=== PATIENT | female | born 1960 | race Caucasian/White ===

== ENCOUNTER 2016-08-10 10:38 | Inpatient (IN) | payer OTHER ==
[~2016-08-10] VITALS: Ht 175.3 cm; Wt 84.3 kg
--- NOTE | 2016-08-10 11:13 | EMERGENCY ROOM VISIT NOTE ---
History First contact with patient: 10:54 Chief Complaint: EYE ASSESSMENT Stated Complaint: FLASHES AND FLURRIES IN RIGHT EYE History of Present Illness The patient is a 56 year old female who presents to the Emergency Room with complaints of "flashes and floaters in right eye". The patient states that 5 days ago she began with dry eyes and thought that it secondary to her allergies. She rubbed the right eye with her hand, then developed a bluish flash of light on the right the eye. She also felt as if she may have pulled something in the right corner of the eye. She also notes a pressure in the right eye when she coughs or sneezes. She rates the pain as a 2/10, there is associated palpitations which have been ongoing. She also feels shaky, feels as if she has a tremor. This has been going on for about 6 months now. She has a history of anxiety and depression and back surgeries. She denies any speech chills, or weakness, chest pain currently but does note that it feels like a tightness, denies any shortness of breath. Review of Systems A complete 6-point Review of Systems was discussed with the patient, with pertinent positives and negatives listed in the History of Present Illness. All remaining Review of Systems questions can be considered negative unless otherwise specified. Past Medical/Surgical History Medical Problems: (1) GERD (gastroesophageal reflux disease) (2) Hypothyroidism (3) Thyrotoxicosis Family History heart disease Social History Smoking Status: Former Smoker Social History: Lives with son and his girlfriend. Current/Historical Medications Scheduled Methimazole (Methimazole), 10 MG PO TID Metoprolol Tartrate (Lopressor), 12.5 MG PO TID Multivitamin (Multivitamin), 1 TAB PO DAILY Pantoprazole (Pantoprazole Sodium), 40 MG PO QAM Sertraline HCl (Sertraline HCl), 25 MG PO QAM Allergies Coded Allergies: No Known Allergies (Unverified , 08/10/16) Physical Exam Vital Signs Date Time Temp Pulse Resp B/P Pulse Ox O2 Delivery O2 Flow Rate FiO2 08/10/16 16:27 91 16 95 08/10/16 14:56 87 11 124/81 98 Room Air 08/10/16 13:56 78 08/10/16 12:49 86 16 103/84 94 Room Air 08/10/16 11:38 85 18 155/67 95 Room Air 08/10/16 11:37 95 Room Air 08/10/16 11:36 89 08/10/16 10:45 36.7 118 18 140/82 94 Room Air Right Eye Acuity: 20/30 Left Eye Acuity: 20/40 Physical Exam VITAL SIGNS - Vital signs and nursing notes were reviewed. Afebrile, normotensive, tachycardic at a rate of 180 bpm, and is saturating on room air 94 %. GENERAL -56-year-old female appearing her stated age who is in no acute distress. Communicates well with provider and answers questions appropriately. SKIN - Without rashes. HEAD - NC/AT. EYES - PERRL with EOMI bilaterally. Sclera anicteric. Palpebral conjunctiva pink and moist with no injection noted. Brief funduscopic examination was unremarkable. EARS - No deformities of external structures noted on gross examination bilaterally. NOSE - Midline and without cyanosis. No epistaxis or purulent drainage noted. Septum midline without deviation or septal hematoma noted. MOUTH/OROPHARYNX - Without perioral cyanosis. Buccal mucosa pink and moist and without leukoplakia. Tongue midline with equal elevation of palate bilaterally. No tonsillar hypertrophy, erythema, or exudates noted. Fair dentition noted. NECK - Neck with FROM. Supple to palpation. No lymphadenopathy noted. No nuchal rigidity. LUNGS - Chest wall symmetric without accessory muscle use, intercostals retractions, or central cyanosis. Normal vesicular breath sounds CTA B/L. No wheezes, rales, or rhonchi appreciated. CARDIAC - RRR with S1/S2. No murmur, rubs, or gallops appreciated. NEUROLOGIC - Cranial nerves II through XII grossly intact. Sensory intact to light touch throughout. There is a fine extremity tremor noted. PSYCH - A&Ox3 and cooperates fully with examiner. Pt is very pleasant and interacts well with examiner. Slit Lamp Examination was performed of the Right eye(s). Alcaine drops were applied to the affected eye(s) for proper anesthetization. The affected eye(s) were stained with Fluorescein stain to precipitate adequate visualization of any conjunctival/scleral excoriations or ulcers. The patient's face was comfortably rested on the chin guard of the slit lamp apparatus. The lights were dimmed and the affected eye(s) were thoroughly examined under microscopy using the blue light. No uptake was present in the eye. Additionally, the eye(s ) were examined under microscopy using the regular light. Close examination revealed no abnormalities. Patient tolerated the procedure well and no complications were met. An Automated Tonometer was utilized to obtain bilateral orbital pressures. The pressures in the LEFT eye were found to be 12, 16,16 with an average of 14.7. The pressures in the RIGHT eye were found to be 12, 14,15 with an average of 13.7. Patient tolerated the procedure well and no complications were met. Medical Decision & Procedures ER Provider Diagnostic Interpretation: CHEST CTA for PULMONARY ARTERIES CT DOSE: 518.00 mGycm HISTORY: Tachycardia. Back pain. Dyspnea. TECHNIQUE: Multiaxial CT images of the chest were performed following the intravenous administration of contrast to evaluate the pulmonary arteries. Maximal intensity projection images were also obtained. COMPARISON STUDY: Chest 08/10/2016 FINDINGS: No evidence for an aortic dissection or pulmonary embolus. The visualized liver and spleen are unremarkable. Subcentimeter mediastinal lymph nodes do not meet CT criteria for pathologic involvement. No pleural or pericardial effusions. Small amount of soft tissue within the anterior mediastinum may represent residual thymus. No pneumothorax. Mild biapical scarlike densities. A few tiny subpleural nodular densities within the right lung apex posteriorly. This may represent scarring. No suspicious pulmonary nodules. No focal lung consolidations to suggest pneumonia. Small focal areas of mild nodular thickening within the bilateral major fissures is also likely benign. IMPRESSION: No evidence for pulmonary embolus. Electronically signed by: Jm Walker M.D. 08/10/2016 2:05 PM Dictated Date/Time: 08/10/2016 1:56 PM CHEST ONE VIEW PORTABLE CLINICAL HISTORY: Chest discomfort. COMPARISON STUDY: No previous studies for comparison. FINDINGS: Lung volumes are normal. There is no pneumothorax or pleural effusion. There is no consolidation. Pulmonary vascularity is normal. Cardiac size is normal. Mediastinal contours are normal. IMPRESSION: No acute cardiopulmonary findings. Electronically signed by: Charles Rodriguez M.D. 08/10/2016 11:45 AM Dictated Date/Time: 08/10/2016 11:[address] SCAN OF THE BRAIN WITHOUT IV CONTRAST CLINICAL HISTORY: Visual changes. COMPARISON STUDY: No priors. TECHNIQUE: Unenhanced axial CT scan of the brain is performed from the vertex to the skull base. Automated dose control exposure was utilized. CT DOSE: 537.48 mGy.cm FINDINGS: Brain parenchyma: The brain parenchyma is normal in appearance. There is no hemorrhage, mass effect, or evidence of acute territorial ischemia by CT criteria. Khoury-white matter is preserved. No extra-axial fluid collection is seen. Ventricles, sulci, cisterns: Normal in configuration. Intracranial vasculature: There is mild atherosclerotic calcification of the cavernous carotid and vertebral arteries. Calvarium: Unremarkable. Sinuses and mastoids: The visualized paranasal sinuses are clear. The mastoid air cells are well pneumatized. Orbits: The bony orbits are grossly intact. IMPRESSION: There is no hemorrhage, mass effect, or evidence of acute territorial ischemia by CT criteria. Electronically signed by: Oni Daly M.D. 08/10/2016 11:57 AM Dictated Date/Time: 08/10/2016 11:56 AM Laboratory Results 08/10/16 11:25 Red Blood Count 4.85, Mean Corpuscular Volume 83.1, Mean Corpuscular Hemoglobin 28.7, Mean Corpuscular Hemoglobin Concent 34.5, Mean Platelet Volume 11.3, Neutrophils (%) (Auto) 56.7, Lymphocytes (%) (Auto) 31.3, Monocytes (%) (Auto) 9.4, Eosinophils (%) (Auto) 2.3, Basophils (%) (Auto) 0.3, Neutrophils # (Auto) 3.63, Lymphocytes # (Auto) 2.00, Monocytes # (Auto) 0.60, Eosinophils # (Auto) 0.15, Basophils # (Auto) 0.02 Test 08/10/16 11:21 08/10/16 11:25 08/10/16 11:31 Bedside Glucose 92 mg/dl (70-90) White Blood Count 6.40 K/uL (4.8-10.8) Red Blood Count 4.85 M/uL (4.2-5.4) Hemoglobin 13.9 g/dL (12.0-16.0) Hematocrit 40.3 % (37-47) Mean Corpuscular Volume 83.1 fL (80-100) Mean Corpuscular Hemoglobin 28.7 pg (25-34) Mean Corpuscular Hemoglobin Concent 34.5 g/dl (32-36) Platelet Count 227 K/uL (130-400) Mean Platelet Volume 11.3 fL (7.4-10.4) Neutrophils (%) (Auto) 56.7 % Lymphocytes (%) (Auto) 31.3 % Monocytes (%) (Auto) 9.4 % Eosinophils (%) (Auto) 2.3 % Basophils (%) (Auto) 0.3 % Neutrophils # (Auto) 3.63 K/uL (1.4-6.5) Lymphocytes # (Auto) 2.00 K/uL (1.2-3.4) Monocytes # (Auto) 0.60 K/uL (0.11-0.59) Eosinophils # (Auto) 0.15 K/uL (0-0.5) Basophils # (Auto) 0.02 K/uL (0-0.2) RDW Standard Deviation 36.7 fL (36.4-46.3) RDW Coefficient of Variation 12.1 % (11.5-14.5) Immature Granulocyte % (Auto) 0.0 % Immature Granulocyte # (Auto) 0.00 K/uL (0.00-0.02) Prothrombin Time 11.0 SECONDS (9.0-12.0) Prothromb Time International Ratio 1.0 (0.9-1.1) Activated Partial Thromboplast Time 25.7 SECONDS (21.0-31.0) Partial Thromboplastin Ratio 1.0 Magnesium Level 2.0 mg/dl (1.8-2.4) Total Bilirubin 0.6 mg/dl (0.2-1) Aspartate Amino Transf (AST/SGOT) 23 U/L (15-37) Alanine Aminotransferase (ALT/SGPT) 35 U/L (12-78) Alkaline Phosphatase 124 U/L (45-117) Total Creatine Kinase 46 U/L (26-192) Creatine Kinase MB < 0.5 ng/ml (0.5-3.6) Creatine Kinase MB Ratio (0-3.0) Total Protein 7.7 gm/dl (6.4-8.2) Albumin 3.7 gm/dl (3.4-5.0) Globulin 4.0 gm/dl (2.5-4.0) Albumin/Globulin Ratio 0.9 (0.9-2) 25-Hydroxy Vitamin D Total 34.3 ng/ml (30-100) Thyroid Stimulating Hormone (TSH) < 0.005 uIu/ml (0.300-4.500) Free Thyroxine 3.59 ng/dl (0.80-1.60) Free Triiodothyronine 11.39 pg/ml (2.30-4.20) Lyme Disease IgG Antibody NEG (NEG) Lyme Disease IgM Antibody NEG (NEG) Hepatitis C Antibody Screen NEG (NEG) Bedside Troponin I 0.000 ng/ml (0-0.045) Medical Decision Patient was seen and evaluated as above. After obtaining a thorough history and physical examination IV access was initiated a broad workup was performed. Patient presents for evaluation of her right eye she will disturbances which is likely a vitreous detachment however neurologic evaluation did commence secondary to the tremor. She is concerned that this may be from her TSH/ thyroid. She states that she was uninsured for a period of time and instead of taking levothyroxine for her hypothyroidism she took thyro gold she states she was taking 300 mg twice a day. She has developed a shakiness/tremor as well as heart palpitations. She was placed on geriatric nurse with continuous pulse ox initiated. During her stay she did become tachycardic into the 150s. There is no provoking event of this. Lab work also focused on TSH. CBC reveals no leukocytosis or concerning anemia. Coagulation studies are within normal limits. Her point care glucose was within normal range. No evidence of significant which went abnormality. Magnesium is within normal limits. Alkaline phosphatase elevated at 124. Point care troponin was 0. TSH was less than 0.005. This appears to be the lowest range of the lab value. Free T3 and free T4 were found to be 11.39, and 3.59 respectively. Because the patient had an episode of tachycardia during her stay, and she was found to be saturating around 94% with some chest tightness I did find that a CT scan of the chest was warranted for PE. This was negative but did have incidental findings which were discussed with the patient. Chest x-ray unremarkable. CT head unremarkable. EKG was normal sinus rhythm, rate of 77 bpm. Patient's eye exam is unremarkable, therefore there is concern for vitreous detachment. I did discuss the case with my attending, and subsequently discussed the case with the on-call leather dresser. I spoke with Dr. Kurtz, an leather dresser, who agreed that it sounds like a vitreous detachment, but would like the patient to call her later today to be seen later today or tomorrow. I do believe this is reasonable. Because the patient experienced several episodes of tachycardia here that were unprovoked, as well as having such an abnormal TSH I do believe that inpatient admission is warranted as I'm concerned the patient may be headed towards a thyroid storm. I did discuss case with my attending again, and subsequently with the hospitalist. Please refer to further documentation regarding the patient's stay. In evaluation treatment this patient following differential diagnoses were entertained: Thyroid storm, hypothyroidism, hyperthyroidism, HI, PE, vitreous detachment, amaurosis fugax, among others. Impression Primary Impression: Visual disturbance of one eye Additional Impressions: Low TSH level Tachycardia Carotid artery calcification vertebral artery calcification Departure Information Dispostion Admitted as an inpatient Condition FAIR Prescriptions Methimazole (Methimazole) 5 Mg Tab 10 MG PO TID for 30 Days, #180 TAB Prov: Margaux Gupta MD 08/13/16 Pantoprazole (Pantoprazole Sodium) 40 Mg Tab 40 MG PO QAM for 30 Days, #30 TAB Prov: Margaux Gupta MD 08/13/16 Sertraline HCl (Sertraline HCl) 50 Mg Tab 25 MG PO QAM for 30 Days, #30 TAB Take 25mg daily x 5 more days then increase to 50mg daily Prov: Margaux Gupta MD 08/13/16 Metoprolol Tartrate (LOPRESSOR) 25 Mg Tab 12.5 MG PO TID for 30 Days, #45 TAB Prov: Margaux Gupta MD 08/13/16 Referrals Nigel Alicia M.D. (PCP) [place] Kurtz D.O. Patient Instructions My [facility] Additional Instructions Please call Dr. Kurtz's office as listed above for follow-up regarding your eye. Problem Qualifiers
[2016-08-10 11:33] LABS: BASO % 0.3 %; BASO ABS # 0.02 K/uL (0-0.2); COMPLETE YES; EOS % 2.3 %; HEMATOCRIT 40.3 % (37-47); LYMPH % 31.3 %; MEAN CELL VOLUME 83.1 fL (80-100); MEAN CORPUSCULAR HEMOGLOBIN 28.7 pg (25-34); MEAN CORPUSCULAR HGB CONC 34.5 g/dl (32-36); MEAN PLATELET VOLUME 11.3 fL (7.4-10.4); MONO % 9.4 %; NEUT % 56.7 %; PLATELET COUNT 227 K/uL (130-400); RED BLOOD COUNT 4.85 M/uL (4.2-5.4)
[2016-08-10] MEDS ORDERED: PRLSR20 PO (11:38)
[2016-08-10] MEDS ORDERED: [UNRECOGNIZED DRUG - CODE] PO (11:38)
[2016-08-10] MEDS ORDERED: MULT-506 PO (11:38)
--- NOTE | 2016-08-10 11:46 | DIAGNOSTIC IMAGING REPORT ---
CHEST ONE VIEW PORTABLE CLINICAL HISTORY: Chest discomfort. COMPARISON STUDY: No previous studies for comparison. FINDINGS: Lung volumes are normal. There is no pneumothorax or pleural effusion. There is no consolidation. Pulmonary vascularity is normal. Cardiac size is normal. Mediastinal contours are normal. IMPRESSION: No acute cardiopulmonary findings. Electronically signed by: Charles Rodriguez M.D. 08/10/2016 11:45 AM Dictated Date/Time: 08/10/2016 11:44 AM
[2016-08-10 11:51] LABS: ALT/SGPT 35 U/L (12-78); AST/SGOT 23 U/L (15-37); BLOOD UREA NITROGEN 17 mg/dl (7-18); BUN/CREATININE RATIO 21.8 (10-20); CALCIUM 10.5 mg/dl (8.5-10.1); CARBON DIOXIDE 26 mmol/L (21-32); CHLORIDE 108 mmol/L (98-107); CREATININE 0.79 mg/dl (0.60-1.20); GLUCOSE 97 mg/dl (70-99); POTASSIUM 3.8 mmol/L (3.5-5.1); SODIUM 144 mmol/L (136-145)
--- NOTE | 2016-08-10 12:00 | DIAGNOSTIC IMAGING REPORT ---
CT SCAN OF THE BRAIN WITHOUT IV CONTRAST CLINICAL HISTORY: Visual changes. COMPARISON STUDY: No priors. TECHNIQUE: Unenhanced axial CT scan of the brain is performed from the vertex to the skull base. Automated dose control exposure was utilized. CT DOSE: 537.48 mGy.cm FINDINGS: Brain parenchyma: The brain parenchyma is normal in appearance. There is no hemorrhage, mass effect, or evidence of acute territorial ischemia by CT criteria. Khoury-white matter is preserved. No extra-axial fluid collection is seen. Ventricles, sulci, cisterns: Normal in configuration. Intracranial vasculature: There is mild atherosclerotic calcification of the cavernous carotid and vertebral arteries. Calvarium: Unremarkable. Sinuses and mastoids: The visualized paranasal sinuses are clear. The mastoid air cells are well pneumatized. Orbits: The bony orbits are grossly intact. IMPRESSION: There is no hemorrhage, mass effect, or evidence of acute territorial ischemia by CT criteria. Electronically signed by: Oni Daly M.D. 08/10/2016 11:57 AM Dictated Date/Time: 08/10/2016 11:56 AM
[2016-08-10 12:01] LABS: ALB/GLOB RATIO 0.9 (0.9-2); ALKALINE PHOSPHATASE 124 U/L (45-117); THYROID STIMULATING HORMONE < 0.005 uIu/ml (0.300-4.500)
[2016-08-10 12:31] LABS: LYME DISEASE AB IGG NEG (NEG); LYME DISEASE AB IGM NEG (NEG)
[2016-08-10] MEDS ORDERED: OPTIRAY 320 IV PRN (13:30)
--- NOTE | 2016-08-10 14:07 | DIAGNOSTIC IMAGING REPORT ---
CHEST CTA for PULMONARY ARTERIES CT DOSE: 518.00 mGycm HISTORY: Tachycardia. Back pain. Dyspnea. TECHNIQUE: Multiaxial CT images of the chest were performed following the intravenous administration of contrast to evaluate the pulmonary arteries. Maximal intensity projection images were also obtained. COMPARISON STUDY: Chest 08/10/2016 FINDINGS: No evidence for an aortic dissection or pulmonary embolus. The visualized liver and spleen are unremarkable. Subcentimeter mediastinal lymph nodes do not meet CT criteria for pathologic involvement. No pleural or pericardial effusions. Small amount of soft tissue within the anterior mediastinum may represent residual thymus. No pneumothorax. Mild biapical scarlike densities. A few tiny subpleural nodular densities within the right lung apex posteriorly. This may represent scarring. No suspicious pulmonary nodules. No focal lung consolidations to suggest pneumonia. Small focal areas of mild nodular thickening within the bilateral major fissures is also likely benign. IMPRESSION: No evidence for pulmonary embolus. Electronically signed by: Jm Walker M.D. 08/10/2016 2:05 PM Dictated Date/Time: 08/10/2016 1:56 PM
[2016-08-10] MEDS ORDERED: POLYETHYLENE (MIRALAX) 17 GM PACK PO PRN (17:30)
[2016-08-10] MEDS ORDERED: ACETAMINOPHEN 325 MG TAB PO PRN (17:30)
[2016-08-10] MEDS ORDERED: MAGNESIUM HYDROXIDE SUSP 30 ML UDC PO PRN (17:30)
[2016-08-10] MEDS ORDERED: ALUMINUM/MAGNESIUM/SIMETH (MAALOX MAX) 30 ML UDC PO PRN (17:30)
[2016-08-10] MEDS ORDERED: ONDANSETRON INJ 2 MG/ML 2 ML VIAL IV PRN (17:30)
--- NOTE | 2016-08-10 17:46 | History and Physical ---
History & Physical Date & Time of Service: Aug 10, 2016 at 17:43 Chief Complaint: Flashes And Flurries In Right Eye Primary Care Physician: Nigel Alicia M.D. History of Present Illness Source: patient Ms. Morrow is a 56 y/o female with PMHx of Hypothyroidism and GERD who presents to the ED complaining of flashes and floaters in bilateral eyes 5 days. She states her symptoms started with dry and itchy eyes. She notes that she has been rubbing her eyes frequently prior to the onset of these flashes and floaters. ED evaluated for concern of vitreous detachment. Ophthalmology was consulted and plans to evaluate patient tomorrow. During evaluation, patient proceeded to mention ongoing chest tightness and elevated heart rate. She states that for the past 3 years that she experiences tachycardia with standing but this seems to resolve when resting. She was diagnosed with hypothyroidism at the age of 23 and was treated with Synthroid for many years. Due to lack of insurance she was unable to afford her medications. For the past 3-4 years she has been using Thyro-gold which is a natural supplement that she purchases online. She has not taken this medication for the past 2 days. During this past 5 days, she reports increased anxiousness, tachycardia, heat intolerance, tremor, fatigue, and difficulty sleeping. She states the symptoms have been more pronounced over the past few days however feels that they have been going on for longer. Patient is new to the area and would like to see Dr. Phillips but has yet to have an official appointment. In the ED, HR varies between 90-170 with increased heart rates with sitting and standing. TSH undetectable at <0.005, T4 3.59, and T3 11.39. Calcium 10.5. Head CT negative for intracranial processes. CTA is negative for pulmonary embolism. Initial troponin is negative. Past Medical/Surgical History Medical Problems: (1) GERD (gastroesophageal reflux disease) (2) Hypothyroidism (3) Thyrotoxicosis Family History Hypothyroidism MOTHER Parkinson's Disease Social History Smoking Status: Former Smoker Smokeless Tobacco Use: No Alcohol Use: none Drug Use: none Housing status: lives with family Allergies Coded Allergies: No Known Allergies (Unverified , 08/10/16) Home Medications Scheduled Multivitamin (Multivitamin), 1 TAB PO DAILY Omeprazole (Prilosec), 20 MG PO DAILY Thyrotropin (Thyrogen), 300 MG PO BID Review of Systems REVIEW OF SYSTEMS: General/Constitutional: +FATIGUE; Denies fever/chills, weakness, weight gain/ loss ENT: +FLASHES/FLOATERS IN VISION; Denies nasal drainage, hearing loss, sore throat, trouble swallowing Cardiovascular: +CHEST TIGHTNESS, PALPITATIONS; Denies edema Respiratory: Denies cough, sputum, SOB, wheezing, orthopnea GI: Denies nausea, vomiting, abdominal pain, constipation, diarrhea, melena/ hematochezia : Denies dysuria, frequency, hematuria Musculoskeletal: Denies joint/muscle aches, weakness, swelling Neurologic: +TREMOR; Denies dizziness/lightheadedness, numbness/tingling, weakness Psychiatric: Deferred Endocrine: +HEAT INTOLERANCE Hematologic/Lymphatic: Denies bleeding/clotting abnormalities Skin: Denies rash, itch, new skin changes, easy bruising Allergy/Immunologic: Deferred Physical Exam Vital Signs Date Time Temp Pulse Resp B/P Pulse Ox O2 Delivery O2 Flow Rate FiO2 08/10/16 16:27 91 16 95 08/10/16 14:56 87 11 124/81 98 Room Air 08/10/16 13:56 78 08/10/16 12:49 86 16 103/84 94 Room Air 08/10/16 11:38 85 18 155/67 95 Room Air 08/10/16 11:37 95 Room Air 08/10/16 11:36 89 08/10/16 10:45 36.7 118 18 140/82 94 Room Air PHYSICAL EXAM:: General Appearance: WDWN in mild distress due to anxiousness who is A&O x 3; mask-like face, mild exophthalmos HEENT: Head is normocephalic/atraumatic; EOMI; PERRLA; Hearing grossly intact; Mucous membranes moist; Pharynx negative for exudate/lesions; possible mild diffuse enlargement of thyroid gland Neck: Supple; Trachea midline; Neg JVD; Neg lymphadenopathy Heart: Tachycardic with regular rhythm with no M/G/R Lungs: CTA in all lung doyle bilaterally; Respirations unlabored; Neg accessory muscle use Abdomen: Soft, non-tender, non-distended; Positive BS x 4 quadrants; Neg organomegaly Extremities: Capillary refill < 2 seconds; Neg cyanosis or edema Neurological: Speech clear; Mild resting tremor; Gross motor/sensory function intact; Neg focal neurologic deficits Psychiatric: Appropriate mood/affect Skin: Normal Color; Warm/Dry; Neg rashes, ecchymosis, lacerations/ulcerations Diagnostics Laboratory Results Results Past 24 Hours Test 08/10/16 11:21 08/10/16 11:25 08/10/16 11:31 08/10/16 17:38 Range/Units Bedside Glucose 92 70-90 mg/dl White Blood Count 6.40 4.8-10.8 K/uL Red Blood Count 4.85 4.2-5.4 M/uL Hemoglobin 13.9 12.0-16.0 g/dL Hematocrit 40.3 37-47 % Mean Corpuscular Volume 83.1 80-100 fL Mean Corpuscular Hemoglobin 28.7 25-34 pg Mean Corpuscular Hemoglobin Concent 34.5 32-36 g/dl Platelet Count 227 130-400 K/uL Mean Platelet Volume 11.3 7.4-10.4 fL Neutrophils (%) (Auto) 56.7 % Lymphocytes (%) (Auto) 31.3 % Monocytes (%) (Auto) 9.4 % Eosinophils (%) (Auto) 2.3 % Basophils (%) (Auto) 0.3 % Neutrophils # (Auto) 3.63 1.4-6.5 K/uL Lymphocytes # (Auto) 2.00 1.2-3.4 K/uL Monocytes # (Auto) 0.60 0.11-0.59 K/uL Eosinophils # (Auto) 0.15 0-0.5 K/uL Basophils # (Auto) 0.02 0-0.2 K/uL RDW Standard Deviation 36.7 36.4-46.3 fL RDW Coefficient of Variation 12.1 11.5-14.5 % Immature Granulocyte % (Auto) 0.0 % Immature Granulocyte # (Auto) 0.00 0.00-0.02 K/uL Prothrombin Time 11.0 9.0-12.0 SECONDS Prothromb Time International Ratio 1.0 0.9-1.1 Activated Partial Thromboplast Time 25.7 21.0-31.0 SECONDS Partial Thromboplastin Ratio 1.0 Sodium Level 144 136-145 mmol/L Potassium Level 3.8 3.5-5.1 mmol/L Chloride Level 108 98-107 mmol/L Carbon Dioxide Level 26 21-32 mmol/L Anion Gap 10.0 3-11 mmol/L Blood Urea Nitrogen 17 7-18 mg/dl Creatinine 0.79 0.60-1.20 mg/dl Est Creatinine Clear Calc Drug Dose 91.4 ml/min Estimated GFR () 96.3 Estimated GFR (Non- 83.1 BUN/Creatinine Ratio 21.8 10-20 Random Glucose 97 70-99 mg/dl Calcium Level 10.5 8.5-10.1 mg/dl Magnesium Level 2.0 1.8-2.4 mg/dl Total Bilirubin 0.6 0.2-1 mg/dl Aspartate Amino Transf (AST/SGOT) 23 15-37 U/L Alanine Aminotransferase (ALT/SGPT) 35 12-78 U/L Alkaline Phosphatase 124 45-117 U/L Total Creatine Kinase 46 26-192 U/L Creatine Kinase MB < 0.5 0.5-3.6 ng/ml Creatine Kinase MB Ratio 0-3.0 Total Protein 7.7 6.4-8.2 gm/dl Albumin 3.7 3.4-5.0 gm/dl Globulin 4.0 2.5-4.0 gm/dl Albumin/Globulin Ratio 0.9 0.9-2 Thyroid Stimulating Hormone (TSH) < 0.005 0.300-4.500 uIu/ml Free Thyroxine 3.59 0.80-1.60 ng/dl Free Triiodothyronine 11.39 2.30-4.20 pg/ml Lyme Disease IgG Antibody NEG NEG Lyme Disease IgM Antibody NEG NEG Bedside Troponin I 0.000 0-0.045 ng/ml Diagnostic Radiology 1. CT SCAN OF THE BRAIN WITHOUT IV CONTRAST CLINICAL HISTORY: Visual changes. COMPARISON STUDY: No priors. TECHNIQUE: Unenhanced axial CT scan of the brain is performed from the vertex to the skull base. Automated dose control exposure was utilized. CT DOSE: 537.48 mGy.cm FINDINGS: Brain parenchyma: The brain parenchyma is normal in appearance. There is no hemorrhage, mass effect, or evidence of acute territorial ischemia by CT criteria. Khoury-white matter is preserved. No extra-axial fluid collection is seen. Ventricles, sulci, cisterns: Normal in configuration. Intracranial vasculature: There is mild atherosclerotic calcification of the cavernous carotid and vertebral arteries. Calvarium: Unremarkable. Sinuses and mastoids: The visualized paranasal sinuses are clear. The mastoid air cells are well pneumatized. Orbits: The bony orbits are grossly intact. IMPRESSION: There is no hemorrhage, mass effect, or evidence of acute territorial ischemia by CT criteria. 2. CHEST CTA for PULMONARY ARTERIES CT DOSE: 518.00 mGycm HISTORY: Tachycardia. Back pain. Dyspnea. TECHNIQUE: Multiaxial CT images of the chest were performed following the intravenous administration of contrast to evaluate the pulmonary arteries. Maximal intensity projection images were also obtained. COMPARISON STUDY: Chest 08/10/2016 FINDINGS: No evidence for an aortic dissection or pulmonary embolus. The visualized liver and spleen are unremarkable. Subcentimeter mediastinal lymph nodes do not meet CT criteria for pathologic involvement. No pleural or pericardial effusions. Small amount of soft tissue within the anterior mediastinum may represent residual thymus. No pneumothorax. Mild biapical scarlike densities. A few tiny subpleural nodular densities within the right lung apex posteriorly. This may represent scarring. No suspicious pulmonary nodules. No focal lung consolidations to suggest pneumonia. Small focal areas of mild nodular thickening within the bilateral major fissures is also likely benign. IMPRESSION: No evidence for pulmonary embolus. EKG Normal sinus rhythm Normal ECG No previous ECGs available Confirmed by CELSO THOMPSON ([id number]) on 08/10/2016 12:14:53 PM Impression Assessment and Plan Ms. Morrow is a 56 y/o female with PMHx of Hypothyroidism and GERD who presents to the ED complaining of flashes and floaters in bilateral eyes 5 days. Associated compaints of chest tightness and tachycardia with standing. Laboratories revealing hyperthyroidism. Thyrotoxicosis 2/2 Supplementation (Thyro-Gold): - Called poison control - they do not have information on this supplement -- Unsure of half-life however patient has not taken this in 2 days --She buys this online at [employer] - Metoprolol 50 mg 1 dose then metoprolol 25 q6H - rate control - Methimazole 10 mg TID - Thyroid U/S - Echocardiogram Flashes/Floaters: Vitreous Detachment vs Hyperthyroid Symptom: - Ophthalmology to evaluate tomorrow Hypercalcemia: - Concern for osteoporosis if this truly is ongoing hyperthyroidism - PTH and vitamin D - pending GERD: - Protonix 40 mg daily as omeprazole interchange DVT Prophylaxis: Lovenox 40 mg SC daily Code Status: FULL RESUSCITATION Disposition: - Recently moved to the area - would like to establish Dr. Phillips as PCP - will need outpatient appointment - Consideration for continued BB use and methimazole - will need repeat thyroid studies as outpatient Level of Care Telemetry Resuscitation Status FULL RESUSCITATION VTE Prophylaxis VTE Risk Assessment Done? Y/N: Yes Risk Level: Moderate Given or contraindicated: Enoxaparin (Lovenox)SQ, T.E.D. Stockings, SCD's Assessment and Plan Attending Addendum: I have physically seen and examined this patient, have directed their medical care, have supervised the PA's activity, and agree with the H&P as noted above, with the following changes: NONE.
[2016-08-10] MEDS ORDERED: METOPROLOL TARTRATE 50 MG TAB PO STA (18:06)
--- NOTE | 2016-08-10 19:20 | DIAGNOSTIC IMAGING REPORT ---
THYROID ULTRASOUND HISTORY: Nodule R/O nodule COMPARISON: None. FINDINGS: Right lobe: Maximum dimension 3.8 cm. Diffusely heterogeneous. No well-defined nodular density. Left lobe: Maximum dimension 3.9 cm. Diffusely heterogeneous. 3 mm central calcification. No definite nodules. Isthmus: No nodules. IMPRESSION: Heterogeneous thyroid bilaterally. 2. No well-defined dominant thyroid nodule]. 3. The appearance suggests a component of thyroiditis Electronically signed by: Jonathan Tong M.D. 08/10/2016 7:18 PM Dictated Date/Time: 08/10/2016 7:16 PM
[2016-08-10] MEDS ORDERED: METOPROLOL TARTRATE 50 MG TAB PO ONE (19:45)
[2016-08-10 19:54] VITALS: BP 111/70; PULSE 93
[2016-08-10 20:00] VITALS: BP 133/77; PULSE 76; TEMP 36.7; O2SAT 95; Ht 175.3 cm; Wt 84.3 kg
[2016-08-10] MEDS: ENOXAPARIN 30 MG/0.3 ML SYR SC SCH (21:00)
[2016-08-10] MEDS: METHIMAZOLE 5 MG TAB PO SCH (21:23)
[2016-08-11] VITALS (10 sets, daily range): BP systolic 94–115; BP diastolic 59–69; PULSE 71–93; TEMP 36.6–36.8; O2SAT 92–96
[2016-08-11] MEDS: METOPROLOL TARTRATE 25 MG TAB PO SCH ×4 (02:15→21:00)
[2016-08-11] MEDS: PANTOprazole SOD 40 MG TAB PO SCH (08:35)
[2016-08-11] MEDS: METHIMAZOLE 5 MG TAB PO SCH ×3 (08:35→21:45)
--- NOTE | 2016-08-11 09:32 | Family Medicine Progress Note ---
Progress Note Date of Service Aug 11, 2016. Subjective Pt evaluation today including: conversation w/ patient Pain: none Reports have had palpitations, anxiety on and off for atleast 3 months Also had "Brain fog" that she attributed to possible early Parkinsons as it runs in her family She has not been able to afford her Synthroid due to not having insurance and not having a doctor. 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- but improved since yesterday Constitutional: No chills, No fatigue, No fever, No sweats, No weakness Eyes: + worsening of vision ENT: No hearing loss Respiratory: No cough, No dyspnea on exertion, No shortness of breath, No sputum, No wheezing Cardiovascular: + palpitations, No chest pain Abdomen: + constipation, No diarrhea, No nausea, No pain, No vomiting Musculoskeletal: + joint pain, No calf pain, No muscle pain, No swelling Female : No dysuria, No urinary frequency Neurologic: No balance problems, No memory loss, No numbness/tingling, No paralysis, No weakness Objective Physical Exam General Appearance: no apparent distress Eyes: normal inspection, PERRL, EOMI ENT: hearing grossly normal, pharynx normal Neck: supple, no adenopathy, thyroid normal Respiratory/Chest: lungs clear, normal breath sounds, no respiratory distress, no accessory muscle use Cardiovascular: regular rate, rhythm, no edema, no murmur Abdomen: normal bowel sounds, non tender, soft Extremities: normal range of motion, non-tender, no pedal edema, no calf tenderness Neurologic/Psychiatric: tooth inspector II-XII nml as tested, no motor/sensory deficits, normal mood/affect Assessment and Plan This is a 56 y/o F with a history of hypothyroidism who presented with floaters/ flashers in her eyes bilaterally as well as tachycardia/palpitations. Lab eval is concerning for thyrotoxicosis. Thyrotoxicosis 2/2 Supplementation (Thyro-Gold): - Called poison control - they do not have information on this supplement -- Unsure of half-life however patient has not taken this in 2 days --She buys this online at [employer] - Reduce Metoprolol to 12.5 mg BID- due to low Blood pressure Patient still tachycardic when walking in hallways. - Tele review with Sinus tach - Methimazole 10 mg TID - Thyroid U/S- without evidence of thyroid nodule but suggests thyroiditis. - Echocardiogram with grade 1 diastolic dysfunction. and borderline LVH Flashes/Floaters: Vitreous Detachment vs Hyperthyroid Symptom: - Ophthalmology evaluation outpatient Hypercalcemia: - Concern for osteoporosis if this truly is ongoing hyperthyroidism? - PTH (normal) and vitamin D(low normal) - Recheck tomorrow with hydration Depression/Anxiety - patient is emotional and tearful, lots of stressors in life - Started on Zoloft. GERD: - Protonix 40 mg daily DVT Prophylaxis: Lovenox 40 mg SC daily- patient declining- encourage ambulation Code Status: FULL RESUSCITATION Disposition: - Recently moved to the area - - CM working on PCP establishment Reviewed: Pt Seen/Exam by Me History Resident Physician Supervision Note: I interviewed and examined the patient. Discussed with Dr. Reynolds and agree with findings and plan as documented in the note. 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 Improved but still tachycardic in the 150s with ambulation. Low blood pressure limited her last dose of metoprolol. She states she has had had depression in the past and been treated with Zoloft which worked. She is not been able to afford to see a doctor or a therapist or counselor in many years. Vitals on telemetry reviewed, sinus tachycardia at times No acute distress, alert and oriented 3 Regular rate and rhythm, no murmurs gallops or rubs Clear to auscultation bilaterally, no wheezes crackles or rhonchi, breathing unlabored Abdomen soft, large incisional midline scar with exquisite tenderness superficially which is chronic as per patient, no guarding or rebound, no hepatosplenomegaly or masses Extremities no edema, 2+ dorsalis pedis pulses Psych-mood is depressed, affect is full and appropriate, no suicidal or homicidal ideations 56-year-old female here with thyrotoxicosis due to exogenous supplementation and no thyroid testing in 5 years due to lack of health insurance. She now has health insurance starting in 2 days. -Continue methimazole and recheck thyroid function tests in 1 week and adjust dose as appropriate -Continue to hold thyroid Gold -Continue metoprolol but reduced is 12.5 mg by mouth twice a day -Starting Zoloft for depression 25 mg daily 1 week then increase to 50 mg daily and then follow up with PCP -Expect discharge tomorrow Documented By: Margaux Gupta
--- NOTE | 2016-08-11 11:57 | ECHOCARDIOGRAM REPORT ---
*NOTICE TO RECEIVING DEMOCRAT AGENCY This information is strictly Confidential and protected under [place] law. [place] law prohibits you from making any further disclosure of this information unless further disclosure is expressly permitted by the written consent of the person to whom it pertains or is authorized by law. A general authorization for the release of medical or other information is not sufficient for this purpose. Hospital accepts no responsibility if the information is made available to any other person, INCLUDING THE PATIENT. Interpretation Summary * Name: NGOC SWIFT Study Date: 08/11/2016 10:14 AM BP: 107/69 mmHg * Patient Location: [facility]\S\[id number]\S\2 HR: 73 * : 1960 (M/d/yyyy) Gender: Female Height: 69 in * Age: 56 yrs Ethnicity: CA Weight: 186 lb * Ordering Physician: Christa Davis * Performed By: Berta Don * * Reason For Study: SVT * BSA: 2.0 m2 * -- Conclusions -- * There is borderline concentric left ventricular hypertrophy. * Left ventricular systolic function is normal. * Grade I diastolic dysfunction, (abnormal relaxation pattern). * Right ventricular systolic pressure is normal. Procedure Details * A complete two-dimensional transthoracic echocardiogram was performed (2D, M-mode, Doppler and color flow Doppler). Left Ventricle * The left ventricle is normal in size. * There is borderline concentric left ventricular hypertrophy. * Ejection Fraction = 55-60%. * Left ventricular systolic function is normal. * Grade I diastolic dysfunction, (abnormal relaxation pattern). Right Ventricle * The right ventricle is normal in size and function. Atria * The left atrial size is normal. * Right atrial size is normal. Mitral Valve * The mitral valve anatomy is normal. * Significant mitral regurgitation is absent. Tricuspid Valve * The tricuspid valve is not well visualized, but is grossly normal. * There is trace tricuspid regurgitation. * Right ventricular systolic pressure is normal. Aortic Valve * The aortic valve is normal in structure and function. * No hemodynamically significant valvular aortic stenosis. * There is no significant aortic regurgitation. Pulmonic Valve * The pulmonic valve leaflets are thin and pliable; valve motion is normal. * Trace pulmonic valvular regurgitation. Great Vessels * The aortic root is normal size. Pericardium/Pleural * There is no pericardial effusion. MMode 2D Measurements and Calculations IVSd 1.2 cm IVSs 1.6 cm LVIDd 4.9 cm LVIDs 3.5 cm LVPWd 0.65 cm LVPWs 1.5 cm IVS/LVPW 1.9 FS 29.1 % EDV(Teich) 112.9 ml ESV(Teich) 50.0 ml EF(Teich) 55.7 % EDV(cubed) 117.7 ml ESV(cubed) 42.0 ml EF(cubed) 64.3 % % IVS thick 27.4 % % LVPW thick 134.4 % LV mass(C)d 162.2 grams LV mass(C)dI 81.0 grams/m\S\2 LV mass(C)s 201.8 grams LV mass(C)sI 100.7 grams/m\S\2 SV(Teich) 62.8 ml SI(Teich) 31.4 ml/m\S\2 SV(cubed) 75.7 ml SI(cubed) 37.8 ml/m\S\2 ACS 1.9 cm LA dimension 3.3 cm asc Aorta Diam 3.3 cm LVOT diam 2.0 cm LVOT area 3.2 cm\S\2 LVAd ap4 33.9 cm\S\2 LVLd ap4 8.2 cm EDV(MOD-sp4) 112.4 ml EDV(sp4-el) 118.5 ml LVAs ap4 19.2 cm\S\2 LVLs ap4 6.6 cm ESV(MOD-sp4) 46.7 ml ESV(sp4-el) 47.4 ml EF(MOD-sp4) 58.4 % EF(sp4-el) 60.0 % LVAd ap2 30.6 cm\S\2 LVLd ap2 8.5 cm EDV(MOD-sp2) 91.7 ml EDV(sp2-el) 93.3 ml LVAs ap2 17.5 cm\S\2 LVLs ap2 6.8 cm ESV(MOD-sp2) 37.1 ml ESV(sp2-el) 37.8 ml EF(MOD-sp2) 59.5 % EF(sp2-el) 59.5 % LVLd %diff 3.2 % EDV(MOD-bp) 102.1 ml LVLs %diff 3.5 % ESV(MOD-bp) 42.5 ml EF(MOD-bp) 58.4 % SV(MOD-sp4) 65.7 ml SI(MOD-sp4) 32.8 ml/m\S\2 SV(MOD-sp2) 54.6 ml SI(MOD-sp2) 27.3 ml/m\S\2 SV(MOD-bp) 59.6 ml SI(MOD-bp) 29.8 ml/m\S\2 SV(sp4-el) 71.1 ml SI(sp4-el) 35.5 ml/m\S\2 SV(sp2-el) 55.5 ml SI(sp2-el) 27.7 ml/m\S\2 Doppler Measurements and Calculations MV E max gricelda 69.6 cm/sec MV A max gricelda 96.0 cm/sec MV E/A 0.72 MV dec time 0.16 sec Ao V2 max 149.5 cm/sec Ao max PG 8.9 mmHg Ao max PG (full) 3.1 mmHg PRIYANK(V,A) 2.6 cm\S\2 PRIYANK(V,D) 2.6 cm\S\2 LV V1 max PG 5.8 mmHg LV V1 max 120.5 cm/sec PA V2 max 78.2 cm/sec PA max PG 2.4 mmHg PI end-d gricelda 95.3 cm/sec TR max gricelda 223.6 cm/sec
[2016-08-11] MEDS ORDERED: SERTRALINE HCL 50 MG TAB PO ONE (16:49)
[2016-08-11] MEDS ORDERED: METOPROLOL TARTRATE 25 MG TAB PO SCH (21:00)
[2016-08-11] MEDS: ENOXAPARIN 30 MG/0.3 ML SYR SC SCH (21:00)
[2016-08-12 04:44] VITALS: BP 110/68; PULSE 70; TEMP 36.4; O2SAT 93
[2016-08-12 07:28] LABS: BUN/CREATININE RATIO 31.2 (10-20); CALCIUM 9.7 mg/dl (8.5-10.1); CREATININE 0.53 mg/dl (0.60-1.20)
--- NOTE | 2016-08-12 07:44 | Discharge Instructions ---
Discharge Instructions Date of Service Aug 12, 2016. Admission Reason for Admission: Thyrotoxicosis Discharge Discharge Diagnosis / Problem: Thyrotoxicosis Discharge Goals Goal(s): Decrease discomfort, Improve function, Diagnostic testing, Therapeutic intervention, Prevent Disease Progression Activity Recommendations Activity Limitations: as noted below Lifting Limitations: gradually increase as tolerated Exercise/Sports Limitations: as tolerated May Resume Sexual Activity: when tolerated Shower/Bathe: no limitations Driving or Machine Use: no limitations . Instructions / Follow-Up Instructions / Follow-Up Dear Mrs. Morrow, You were admitted due to having elevated heart rate, palpitations, floaters/ flashers in your eyes. You were found to have too much thyroid hormone that we believe is a result of your thyroid supplement. Please stop taking thyro-gold. You have been started on Methimazole to help reverse this. You also have Metoprolol for control of symptoms such as elevated heart rate. In terms of the floaters in your eyes, you will have follow up with Ophthalmology, Dr. Freedman on August 15. You will need close follow up with a PCP to monitor your thyroid hormone levels. Case management will help facilitate this. If you experience any further symptoms, please call your PCP or go to the ER. Thank you. Current Hospital Diet Patient's current hospital diet: Regular Diet Discharge Diet Recommended Diet: Regular Diet Pending Studies Studies pending at discharge: no Medical Emergencies . Who to Call and When: Medical Emergencies: If at any time you feel your situation is an emergency, please call 911 immediately. . Non-Emergent Contact Non-Emergency issues call your: Primary Care Provider . . "Provider Documentation" section prepared by Soheila Wheatley. VTE Core Measure Inpt VTE Proph given/why not?: Enoxaparin (Lovenox)EMILE, TJeffECheng Cool, SCD's
[2016-08-12 08:01] VITALS: BP 112/59; PULSE 74; TEMP 36.6; O2SAT 94
[2016-08-12] MEDS: PANTOprazole SOD 40 MG TAB PO SCH (08:41)
[2016-08-12] MEDS: METOPROLOL TARTRATE 25 MG TAB PO SCH ×2 (08:41→21:57)
[2016-08-12] MEDS: METHIMAZOLE 5 MG TAB PO SCH ×3 (08:42→21:56)
[2016-08-12] MEDS: SERTRALINE HCL 50 MG TAB PO SCH (08:43)
[2016-08-12 11:27] VITALS: BP 120/74; PULSE 85; TEMP 36.6; O2SAT 96
[2016-08-12 15:07] VITALS: BP_SYST 114; BP_SYST 99; BP_DIAS 65; BP_DIAS 70; BP_DIAS 77; PULSE 126; PULSE 70; PULSE 95
[2016-08-12] MEDS ORDERED: NURSING VERBAL MED ORDER ONE (15:30)
[2016-08-12] MEDS ORDERED: ALUMINUM/MAGNESIUM SUSP 30 ML UDC ONE (15:39)
[2016-08-12 15:54] VITALS: BP_SYST 111; BP_SYST 112; BP_SYST 117; BP_DIAS 64; BP_DIAS 67; BP_DIAS 74; PULSE 134; PULSE 67; PULSE 89; TEMP 36.7; O2SAT 96
[2016-08-12] MEDS ORDERED: MAGNESIUM HYDROXIDE SUSP 30 ML UDC PO ONE (16:00)
[2016-08-12] MEDS ORDERED: METOPROLOL TARTRATE 25 MG TAB PO ONE (16:45)
--- NOTE | 2016-08-12 17:09 | Family Medicine Progress Note ---
Progress Note Date of Service Aug 12, 2016. Subjective Pt evaluation today including: conversation w/ patient Voiding: no voiding problems Reports having mild shortness of breath with exertion/walking to the bathroom Still has floaters/flashers Denies chest pain Constitutional: No chills, No fatigue, No fever, No sweats, No weakness Eyes: No worsening of vision ENT: No hearing loss Respiratory: + dyspnea on exertion, + shortness of breath, No cough, No sputum, No wheezing Cardiovascular: No PND, No chest pain, No edema, No orthopnea Abdomen: No diarrhea, No nausea, No pain, No vomiting Musculoskeletal: + joint pain, No calf pain, No swelling Female : No dysuria, No urinary frequency Objective Physical Exam General Appearance: no apparent distress Eyes: PERRL, EOMI ENT: hearing grossly normal Neck: no adenopathy, thyroid normal Respiratory/Chest: lungs clear, normal breath sounds, no respiratory distress, no accessory muscle use Cardiovascular: regular rate, rhythm, no edema, no murmur Abdomen: normal bowel sounds, non tender, soft Extremities: non-tender, normal inspection, no pedal edema, no calf tenderness Neurologic/Psychiatric: no motor/sensory deficits, alert, normal mood/affect Assessment and Plan This is a 56 y/o F with a history of hypothyroidism who presented with floaters/ flashers in her eyes bilaterally as well as tachycardia/palpitations. She is admitted for Thyrotoxicosis. Though she has been started on Metoprolol for symptom and HR control, her blood pressure is in the 90-100 systolic making it difficult to administer metoprolol. She also becomes tachycardic in the 150s with ambulation to the bathroom and is some what short of breath. Patient and son were considering going home. However, with being symptomatic in the 150's with minimal ambulation/activity, they decided to stay a night. Patient also had an episode of chest pain, that resolved with maalox. Thyrotoxicosis 2/2 Supplementation (Thyro-Gold): -Change Metoprolol to 12.5 mg TID Patient still tachycardic when walking in hallways. Discussed with Patient and son that this will not resolve overnight, will need thyroid hormones to stabilize - Tele review with Sinus tach - Methimazole 10 mg TID - Thyroid U/S- without evidence of thyroid nodule but suggests thyroiditis. - Echocardiogram with grade 1 diastolic dysfunction. and borderline LVH - orthostatics positive Flashes/Floaters: Vitreous Detachment vs Hyperthyroid Symptom: - Ophthalmology evaluation outpatient Hypercalcemia- improved with hydration - Concern for osteoporosis if this truly is ongoing hyperthyroidism? - PTH (normal) and vitamin D(low normal) Depression/Anxiety - patient is emotional and tearful, lots of stressors in life - Started on Zoloft. GERD: - Protonix 40 mg daily DVT Prophylaxis: Lovenox 40 mg SC daily- patient declining- encourage ambulation Code Status: FULL RESUSCITATION Disposition: - Recently moved to the area - - Has PCP appt. scheduled. Continued [facility] stay due to: abnormal vital signs History Resident Physician Supervision Note: I interviewed and examined the patient. Discussed with Dr. Reynolds and agree with findings and plan as documented in the note. Any exceptions or clarifications are listed here: Remains tachycardic with minimal exertion on telemetry, however it is improved from previous and she was able to receive a lower dose of metoprolol this morning as her blood pressure was finally over 100. She is still very short of breath and feels lightheaded with standing and walking and her orthostatics were positive. She had an episode of her usual chest pain which always occurs while she is lying down. It feels like someone is rubbing their fist into her chest. I gave her a dose of Maalox and the symptoms were almost immediately relieved. Vitals on telemetry reviewed, sinus tachycardia at times No acute distress, alert and oriented 3 Regular rate and rhythm, no murmurs gallops or rubs Clear to auscultation bilaterally, no wheezes crackles or rhonchi, breathing unlabored Abdomen soft, large incisional midline scar with exquisite tenderness superficially which is chronic as per patient, no guarding or rebound, no hepatosplenomegaly or masses Extremities no edema, 2+ dorsalis pedis pulses Psych-mood is depressed, affect is full and appropriate, no suicidal or homicidal ideations 56-year-old female here with thyrotoxicosis due to exogenous supplementation and no thyroid testing in 5 years due to lack of health insurance. She now has health insurance starting in 2 days. -Continue methimazole and recheck thyroid function tests in 1 week and adjust dose as appropriate -Permanently discontinue thyroid Gold and will eventually need to be restarted on levothyroxine -Continue metoprolol but reduced is 12.5 mg by mouth 3 times a day -Started Zoloft for depression 25 mg daily 1 week then increase to 50 mg daily and then follow up with PCP -For her GERD symptoms with breakthrough despite being on PPI, recommend she see a production associate for possible EGD after she gets established with her new insurance and PCP. Documented By: Margaux Gupta
[2016-08-12 19:46] VITALS: BP 115/58; PULSE 70; TEMP 36.3; O2SAT 94
[2016-08-12] MEDS: ENOXAPARIN 30 MG/0.3 ML SYR SC SCH (21:00)
[2016-08-13 00:29] VITALS: BP 98/59; PULSE 68; TEMP 36.5; O2SAT 94
[2016-08-13 05:42] VITALS: BP 106/59; PULSE 89; TEMP 36.5; O2SAT 93
[2016-08-13 07:34] VITALS: BP 103/64; PULSE 77; TEMP 36.7; O2SAT 96
[2016-08-13] MEDS: METHIMAZOLE 5 MG TAB PO SCH ×2 (08:25→13:40)
[2016-08-13] MEDS: METOPROLOL TARTRATE 25 MG TAB PO SCH ×2 (08:25→13:42)
[2016-08-13] MEDS: SERTRALINE HCL 50 MG TAB PO SCH (08:26)
[2016-08-13] MEDS: PANTOprazole SOD 40 MG TAB PO SCH (08:26)
[2016-08-13] MEDS ORDERED: PRT40 PO (10:04)
[2016-08-13] MEDS ORDERED: LPR25 PO (10:04)
[2016-08-13] MEDS ORDERED: ZLF50 PO (10:04)
[2016-08-13] MEDS ORDERED: TPZ5 PO (10:04)
--- NOTE | 2016-08-13 10:11 | Discharge Instructions ---
Discharge Instructions Date of Service Aug 13, 2016. Admission Reason for Admission: Thyrotoxicosis Discharge Discharge Diagnosis / Problem: Thyrotoxicosis, Major Depressive Disorder Discharge Goals Goal(s): Improve disease control, Therapeutic intervention Activity Recommendations Activity Limitations: as noted below Exercise/Sports Limitations: until after follow-up appointment Shower/Bathe: no limitations Instructions / Follow-Up Instructions / Follow-Up .Dear Mrs. oMrrow, You were admitted due to having elevated heart rate, palpitations, floaters/ flashers in your right eye. You were found to have too much thyroid hormone that we believe is a result of your thyroid supplement. Please stop taking thyro -gold. You have been started on Methimazole to help reverse this. You also have Metoprolol for control of symptoms such as elevated heart rate. In terms of the floaters in your eyes, you will have follow up with Ophthalmology, Dr. Freedman on August 15. You will need close follow up with a PCP to monitor your thyroid hormone levels. Case management will help facilitate this. If you experience any further symptoms, please call your PCP or go to the ER. Thank you. Current Hospital Diet Patient's current hospital diet: Regular Diet Discharge Diet Recommended Diet: Regular Diet Procedures Procedures Performed: Echocardiogram Pending Studies Studies pending at discharge: no Medical Emergencies . Who to Call and When: Medical Emergencies: If at any time you feel your situation is an emergency, please call 911 immediately. . Non-Emergent Contact Non-Emergency issues call your: Primary Care Provider Call Non-Emergent contact if: you have any medication questions if you have worsening chest pain, lightheadedness, shortness of breath, or for any other acute concerns. . . "Provider Documentation" section prepared by Margaux Gupta. VTE Core Measure Inpt VTE Proph given/why not?: Enoxaparin (Lovenox)EMILE, Jose. Silvina, SCD's
[2016-08-13 11:10] VITALS: BP 103/64; PULSE 77; TEMP 36.7; O2SAT 96
--- NOTE | 2016-08-13 17:29 | Discharge Summary ---
Discharge Summary Date of Service Aug 13, 2016. Discharge Summary Admission Date: Aug 10, 2016 at 17:38 Discharge Date: Aug 13, 2016 Discharge Disposition: Home Principal Diagnosis: Thyrotoxicosis Problems/Secondary Diagnoses: Major depressive disorder Sinus tachycardia Hypothyroidism Grade 1 diastolic dysfunction Flashes/Floaters in the right eye Hypercalcemia GERD Chest pain-noncardiac Procedures: CHEST CTA for PULMONARY ARTERIES CT DOSE: 518.00 mGycm HISTORY: Tachycardia. Back pain. Dyspnea. TECHNIQUE: Multiaxial CT images of the chest were performed following the intravenous administration of contrast to evaluate the pulmonary arteries. Maximal intensity projection images were also obtained. COMPARISON STUDY: Chest 08/10/2016 FINDINGS: No evidence for an aortic dissection or pulmonary embolus. The visualized liver and spleen are unremarkable. Subcentimeter mediastinal lymph nodes do not meet CT criteria for pathologic involvement. No pleural or pericardial effusions. Small amount of soft tissue within the anterior mediastinum may represent residual thymus. No pneumothorax. Mild biapical scarlike densities. A few tiny subpleural nodular densities within the right lung apex posteriorly. This may represent scarring. No suspicious pulmonary nodules. No focal lung consolidations to suggest pneumonia. Small focal areas of mild nodular thickening within the bilateral major fissures is also likely benign. IMPRESSION: No evidence for pulmonary embolus. CT SCAN OF THE BRAIN WITHOUT IV CONTRAST CLINICAL HISTORY: Visual changes. COMPARISON STUDY: No priors. TECHNIQUE: Unenhanced axial CT scan of the brain is performed from the vertex to the skull base. Automated dose control exposure was utilized. CT DOSE: 537.48 mGy.cm FINDINGS: Brain parenchyma: The brain parenchyma is normal in appearance. There is no hemorrhage, mass effect, or evidence of acute territorial ischemia by CT criteria. Khoury-white matter is preserved. No extra-axial fluid collection is seen. Ventricles, sulci, cisterns: Normal in configuration. Intracranial vasculature: There is mild atherosclerotic calcification of the cavernous carotid and vertebral arteries. Calvarium: Unremarkable. Sinuses and mastoids: The visualized paranasal sinuses are clear. The mastoid air cells are well pneumatized. Orbits: The bony orbits are grossly intact. IMPRESSION: There is no hemorrhage, mass effect, or evidence of acute territorial ischemia by CT criteria. CHEST ONE VIEW PORTABLE CLINICAL HISTORY: Chest discomfort. COMPARISON STUDY: No previous studies for comparison. FINDINGS: Lung volumes are normal. There is no pneumothorax or pleural effusion. There is no consolidation. Pulmonary vascularity is normal. Cardiac size is normal. Mediastinal contours are normal. IMPRESSION: No acute cardiopulmonary findings. THYROID ULTRASOUND HISTORY: Nodule R/O nodule COMPARISON: None. FINDINGS: Right lobe: Maximum dimension 3.8 cm. Diffusely heterogeneous. No well-defined nodular density. Left lobe: Maximum dimension 3.9 cm. Diffusely heterogeneous. 3 mm central calcification. No definite nodules. Isthmus: No nodules. IMPRESSION: 1. Heterogeneous thyroid bilaterally. 2. No well-defined dominant thyroid nodule]. 3. The appearance suggests a component of thyroiditis ECHO: * There is borderline concentric left ventricular hypertrophy. * Left ventricular systolic function is normal. * Grade I diastolic dysfunction, (abnormal relaxation pattern). * Right ventricular systolic pressure is normal Consultations: None Medication Reconciliation New Medications: Methimazole (Methimazole) 5 Mg Tab 10 MG PO TID for 30 Days, #180 TAB Metoprolol Tartrate (Lopressor) 25 Mg Tab 12.5 MG PO TID for 30 Days, #45 TAB Pantoprazole (Pantoprazole Sodium) 40 Mg Tab 40 MG PO QAM for 30 Days, #30 TAB Sertraline HCl (Sertraline HCl) 50 Mg Tab 25 MG PO QAM for 30 Days, #30 TAB Take 25mg daily x 5 more days then increase to 50mg daily Continued Medications: Multivitamin (Multivitamin) Tab 1 TAB PO DAILY, TAB Discontinued Medications: Omeprazole (Prilosec) 20 Mg Capcr 20 MG PO DAILY, CAP Thyrotropin (Thyrogen) 0.9 Mg/Ml Inj 300 MG PO BID Discharge Exam Patient was improved on the day of discharge, was still having some palpitations and mild lightheadedness with ambulation. However when she ambulated her heart rate was only going into the 1 teens to 120s which was much improved. She felt well enough to go home. Review of Systems: Constitutional: No chills, No fever Eyes: + problem reported (flashes and floaters in the right eye), No worsening of vision ENT: No trouble swallowing Respiratory: No cough, No shortness of breath Cardiovascular: + chest pain (occasional that was relieved with Maalox), + palpitations Abdomen: No diarrhea, No nausea, No pain, No vomiting Musculoskeletal: No problem reported Genitourinary - Female: No problem reported Neurologic: No problem reported Psychiatric: + depression symptoms (without suicidal ideations) Endocrine: No problem reported Hematologic / Lymphatic: No problem reported Integumentary: No problem reported Physical Exam: General Appearance: WD/WN, no apparent distress Eyes: normal inspection, EOMI, sclerae normal ENT: hearing grossly normal Neck: trachea midline Respiratory/Chest: lungs clear, normal breath sounds, no respiratory distress, no accessory muscle use Cardiovascular: regular rate, rhythm, no edema, no gallop, no murmur, normal peripheral pulses Abdomen / GI: normal bowel sounds, non tender, soft, no organomegaly, no pulsatile mass Extremities: normal inspection, no calf tenderness, no pedal edema, normal range of motion Neurologic/Psychiatric: loan representative II-XII nml as tested, no motor/sensory deficits , alert, oriented x 3, + depressed affect Skin: normal color, warm/dry, no rash Hospital Course This is a 56 y/o F with a history of hypothyroidism who presented with floaters/ flashers in her eyes bilaterally as well as tachycardia/palpitations. TSH was found to be undetectable with the significantly elevated free T4 and free T3. She is admitted for Thyrotoxicosis secondary to exogenous supplementation and no thyroid testing in 5 years due to lack of health insurance. She has been started on Metoprolol for symptom and HR control, her blood pressure initially limited the dosing of the metoprolol, but after the dose was lowered, she was able to tolerate taking it which helped with her tachycardia. She was also started on methimazole. Thyrotoxicosis 2/2 Supplementation (Thyro-Gold), tremor, sinus tachycardia: - Thyroid U/S- without evidence of thyroid nodule but suggests thyroiditis. - Echocardiogram with grade 1 diastolic dysfunction. and borderline LVH - orthostatics positive -Continue Metoprolol to 12.5 mg TID for sinus tachycardia and tapered down after thyroid under control - Tele review with Sinus tachycardia only - Continue methimazole and recheck thyroid function tests in 1 week and adjust dose as appropriate -Permanently discontinue thyroid Gold and will eventually need to be restarted on levothyroxine Flashes/Floaters: Vitreous Detachment vs Hyperthyroid Symptom: - Ophthalmology evaluation outpatient as discussed on the phone with Dr. Freedman/ director news-this was arranged for her on Monday as an outpatient Hypercalcemia- calcium initially 10.5, improved with hydration to 9.7 - PTH (normal) and vitamin D normal Depression/Anxiety - patient is emotional and tearful, lots of stressors in life, this is a recurrence of major depressive disorder - Started on Zoloft 25 mg daily for one week then should increase to 50 mg once daily and follow up with PCP GERD: Has breakthrough symptoms of almost daily chest pain with lying flat. Was relieved immediately with Maalox -Changed to Protonix 40 mg daily from her home OTC Prilosec -Recommend referral to gastroenterology as an outpatient for EGD DVT Prophylaxis: Lovenox 40 mg SC daily Code Status: FULL RESUSCITATION Disposition: - Recently moved to the area - - Has PCP appt. scheduled. -Follow up with ophthalmology on Monday Total Time Spent: Greater than 30 minutes This includes examination of the patient, discharge planning, medication reconciliation, and communication with other providers. Discharge Instructions Please refer to the electronic Patient Visit Report (Discharge Instructions) for additional information. Follow-Up With PCP within 1 week With ophthalmology within 3 days Additional Copies To Hai Freedman M.D.; Mary Jo,
--- NOTE | 2016-08-18 13:15 | CONSULTATION REPORT ---
DATE OF CONSULTATION: 08/11/2016 I discussed the consult with the consulting physician and we agreed to cancel the consult and have the patient come into our office for her eye examination within the next 2 or 3 days.
[2016-11-23] MEDS ORDERED: LEVO150T9 PO (09:10)
[2016-11-23] MEDS ORDERED: CETI10TA84 PO (09:10)
[2016-11-23] MEDS ORDERED: SERT-234 PO (09:10)
[2016-11-23] MEDS ORDERED: ACET-1256 PO (09:10)
[2016-11-23] MEDS ORDERED: BISA-49 PO (09:10)
[2017-01-23] MEDS ORDERED: METF750T PO (11:05)
[2017-02-13] MEDS ORDERED: PANT40TA PO (10:01)
[2017-03-21] MEDS ORDERED: LEVO137T3 PO (10:08)
[2017-03-21] MEDS ORDERED: SERT-234 PO (10:08)
[2017-03-21] MEDS ORDERED: PANT40TA PO (10:08)
[2017-03-21] MEDS ORDERED: METF750T PO (10:08)
[2017-03-21] MEDS ORDERED: BACL10TA PO (10:08)
== END 2016-08-13 14:00 | disposition home or self-care (01) | DRG 645 ==
LOC: ENRESERVTM → ENRESERVDT → C.EDB 10:41 → C.MED 17:38
PROVIDERS: ADMIT Hospitalist; ATTEND Family Medicine
DX: E05.90 Thyrotoxicosis, unspecified without thyrotoxic crisis or storm (principal); H53.9 Unspecified visual disturbance; K21.9 Gastro-esophageal reflux disease without esophagitis; E03.9 Hypothyroidism, unspecified; R00.0 Tachycardia, unspecified; E83.52 Hypercalcemia; F32.9 Major depressive disorder, single episode, unspecified; F41.9 Anxiety disorder, unspecified; Z87.891 Personal history of nicotine dependence

== ENCOUNTER → 2016-09-05 | Outpatient (CLI) | payer OTHER ==
[~2016-09-05] MED LIST: ACET-1256 PO; BACL10TA PO; BISA-49 PO; CETI10TA84 PO; LEVO137T3 PO; LEVO150T9 PO; LPR25 PO; METF750T PO; MULT-506 PO; PANT40TA PO; PRT40 PO; SERT-234 PO; TPZ5 PO; ZLF50 PO
--- NOTE | 2016-09-05 15:11 | DIAGNOSTIC IMAGING REPORT ---
LEFT SHOULDER 3 VIEWS HISTORY: Left shoulder pain. COMPARISON: None. FINDINGS: There is no fracture or dislocation. Soft tissues are unremarkable. The left clavicle is intact. Moderate AC joint arthropathy. 5 mm calcification at the distal supraspinatus tendon consistent with a calcific tendinitis. Mild osteoarthritis at the glenohumeral joint. IMPRESSION: No fractures. Additional findings as described above. Electronically signed by: Jm Walker M.D. 09/05/2016 3:10 PM Dictated Date/Time: 09/05/2016 3:08 PM
[2016-09-05 17:24] LABS: THYROID STIMULATING HORMONE 0.963 uIu/ml (0.300-4.500)
== END | disposition home or self-care (01) ==
LOC: C.RADBC 13:44
PROVIDERS: ATTEND Family Medicine
DX: M25.512 Pain in left shoulder (principal)

== ENCOUNTER → 2016-10-03 | Outpatient (CLI) | payer OTHER ==
[2016-10-03 17:36] LABS: URINE APPEARANCE CLEAR (CLEAR); URINE BILIRUBIN NEG (NEG); URINE COLOR DK YELLOW; URINE NITRITE NEG (NEG); URINE PH 5.5 (4.5-7.5); URINE SPECIFIC GRAVITY 1.034 (1.000-1.030); UROBILINOGEN NEG (NEG)
[2016-10-03 17:39] LABS: MANUAL MICROSCOPIC REQUIRED? NO; REVIEW REQ? NO
== END | disposition home or self-care (01) ==
LOC: C.LAB1850 15:59
PROVIDERS: ATTEND Nurse Practitioner Adult Health
DX: R30.0 Dysuria (principal); E03.9 Hypothyroidism, unspecified

== ENCOUNTER → 2016-10-27 | Outpatient (CLI) | payer OTHER ==
[~2016-10-27] MED LIST changes: -BACL10TA PO; -LEVO137T3 PO; -PANT40TA PO
== END | disposition home or self-care (01) ==
LOC: C.MAMM 07:42
PROVIDERS: ATTEND Internal Medicine Endocrinology, Diabetes & Metabolism
DX: E05.90 Thyrotoxicosis, unspecified without thyrotoxic crisis or storm (principal)

== ENCOUNTER → 2016-11-07 | Outpatient (CLI) | payer OTHER ==
[2016-11-07 17:48] LABS: THYROID STIMULATING HORMONE 0.135 uIu/ml (0.300-4.500)
[2016-11-08 06:35] LABS: ESTIMATED AVERAGE GLUCOSE 108 mg/dl; HA1C FLAG Normal (Normal)
[2016-11-11 02:20] LABS: ILGF1 Z SCORE FEMALE 0.5 SD (-2.0 - +2.0); INSULIN LIKE GROWTH FACTOR-I 170 ng/mL (50-317)
--- NOTE | 2016-11-11 09:53 | CODING QUERY MEDICAL NECESSITY ---
SUPPORTING DIAGNOSIS NEEDED Dr. Ruiz, A supporting diagnosis is required for the test/procedure performed on this patient in order for us to be reimbursed by the patient's insurance. Please provide a supporting diagnosis for the following test/procedure listed below next to the test name along with your signature. *If there is no additional diagnosis for this patient that would support the following test/procedure please document that below next to the test/procedure. Test(s)/Procedure(s) that require a supporting diagnosis: * HEMO A1C DIAGNOSIS: DATE OF SERVICE: 11/07/16 Provider Signature: Date: Thank you Dank Pedersen [facility] Information Management Once completed, please kindly fax back to [phone] For questions please call [phone]
== END | disposition home or self-care (01) ==
LOC: C.LAB1850 15:53
PROVIDERS: ATTEND Internal Medicine Endocrinology, Diabetes & Metabolism
DX: E03.9 Hypothyroidism, unspecified (principal); L91.8 Other hypertrophic disorders of the skin; E78.00 Pure hypercholesterolemia, unspecified; R35.8 Other polyuria; E05.90 Thyrotoxicosis, unspecified without thyrotoxic crisis or storm; E66.3 Overweight

== ENCOUNTER → 2016-11-28 | Outpatient (CLI) | payer OTHER ==
[~2016-11-28] MED LIST changes: -LPR25 PO; -PRT40 PO; -TPZ5 PO; -ZLF50 PO
== END | disposition home or self-care (01) ==
LOC: C.MAMM 10:16
PROVIDERS: ATTEND Internal Medicine Endocrinology, Diabetes & Metabolism
DX: E05.90 Thyrotoxicosis, unspecified without thyrotoxic crisis or storm (principal); M43.06 Spondylolysis, lumbar region; Z87.898 Personal history of other specified conditions

== ENCOUNTER → 2016-12-21 | Outpatient (CLI) | payer OTHER ==
[2016-12-21 11:46] LABS: THYROID STIMULATING HORMONE 0.295 uIu/ml (0.300-4.500)
[2016-12-21 11:49] LABS: CALCULATED INSULIN SENSITIVITY 0.303; GLUCOSE LOG 1.959; INSULIN FASTING 21.8 mU/L (3-25); INSULIN LOG 1.3385
[2016-12-23 15:41] LABS: TSI <89 % baseline (<140)
== END | disposition home or self-care (01) ==
LOC: C.LABBC 08:03
PROVIDERS: ATTEND Internal Medicine Endocrinology, Diabetes & Metabolism
DX: E05.90 Thyrotoxicosis, unspecified without thyrotoxic crisis or storm (principal); E78.00 Pure hypercholesterolemia, unspecified; R20.2 Paresthesia of skin

== ENCOUNTER → 2017-03-08 | Outpatient (CLI) | payer OTHER ==
[~2017-03-08] MED LIST changes: -CETI10TA84 PO; +PANT40TA PO
[2017-03-08 11:38] LABS: THYROID STIMULATING HORMONE 1.04 uIu/ml (0.300-4.500)
== END | disposition home or self-care (01) ==
LOC: C.LABBC 08:21
PROVIDERS: ATTEND Internal Medicine Endocrinology, Diabetes & Metabolism
DX: E05.90 Thyrotoxicosis, unspecified without thyrotoxic crisis or storm (principal)

== ENCOUNTER → 2017-03-27 | Outpatient (CLI) | payer OTHER ==
[~2017-03-27] MED LIST changes: -ACET-1256 PO; +BACL10TA PO; -BISA-49 PO; +LEVO137T3 PO; -LEVO150T9 PO; -MULT-506 PO
[2017-03-27 11:41] LABS: THYROID STIMULATING HORMONE 0.145 uIu/ml (0.300-4.500)
== END | disposition home or self-care (01) ==
LOC: C.LABBC 08:08
PROVIDERS: ATTEND Internal Medicine Endocrinology, Diabetes & Metabolism
DX: E03.9 Hypothyroidism, unspecified (principal)

== ENCOUNTER → 2017-05-19 | Outpatient (CLI) | payer OTHER ==
[2017-05-19 11:19] LABS: HEMOGLOBIN A1C 5.1 % (4.5-5.6)
[2017-05-19 11:26] LABS: ALBUMIN 4.1 gm/dl (3.4-5.0); ALT/SGPT 19 U/L (12-78); AST/SGOT 14 U/L (15-37); BLOOD UREA NITROGEN 21 mg/dl (7-18); CALCIUM 9.6 mg/dl (8.5-10.1); CARBON DIOXIDE 25 mmol/L (21-32); CREATININE 0.87 mg/dl (0.60-1.20); GLUCOSE 87 mg/dl (70-99); GLUCOSE,FASTING 87 mg/dl (70-99); POTASSIUM 3.5 mmol/L (3.5-5.1); SODIUM 137 mmol/L (136-145)
[2017-05-19 11:36] LABS: ALKALINE PHOSPHATASE 88 U/L (45-117)
== END | disposition home or self-care (01) ==
LOC: C.LABBC 07:46
PROVIDERS: ATTEND Internal Medicine Endocrinology, Diabetes & Metabolism
DX: E16.1 Other hypoglycemia (principal); E03.9 Hypothyroidism, unspecified

== ENCOUNTER → 2017-07-25 | Outpatient (CLI) | payer OTHER ==
[~2017-07-25] MED LIST changes: +BUSP15TA70 PO; +HYDR50CA2 PO
== END | disposition home or self-care (01) ==
LOC: C.LAB1850 15:50
PROVIDERS: ATTEND Internal Medicine Endocrinology, Diabetes & Metabolism
DX: E03.9 Hypothyroidism, unspecified (principal)

== ENCOUNTER → 2017-08-17 | Outpatient (CLI) | payer OTHER ==
[~2017-08-17] MED LIST changes: +GABA-113 PO; +GLC500 PO; +LEVO112T4 PO; +MELA1TAB5 PO; +PRLSR20 PO
[2017-08-17 14:11] LABS: BLOOD UREA NITROGEN 12 mg/dl (7-18); CREATININE 0.76 mg/dl (0.60-1.20)
== END | disposition home or self-care (01) ==
LOC: C.LAB 11:26
PROVIDERS: ATTEND Physician Assistant Medical
DX: E11.9 Type 2 diabetes mellitus without complications (principal)

== ENCOUNTER → 2017-08-24 | Outpatient (CLI) | payer OTHER ==
[~2017-08-24] MED LIST changes: -BACL10TA PO; +GADAVIST IV PRN; -HYDR50CA2 PO; -LEVO137T3 PO; -METF750T PO; -PANT40TA PO
--- NOTE | 2017-08-24 10:40 | DIAGNOSTIC IMAGING REPORT ---
MRI LUMBAR SPINE COMBINATION CLINICAL HISTORY: Right-sided lumbar spine pain. Failure of conservative therapy. History of prior lumbar fusion. TECHNIQUE: Sagittal and axial T1, T2 and STIR images were obtained. Images were acquired before and after the administration of 7.9 cc of intravenous Gadavist. COMPARISON STUDY: No previous studies for comparison. OBSERVATIONS: There are postsurgical changes of discectomies and lumbar disc replacement at the L3-4, L4-5, and L5-S1 levels. There is discogenic endplate edema at the L2-3 level. There is evidence for posterior spinal fusion with L3-L5 pedicle screw fixation. L1-2: There is a circumferential disc bulge with minimal spinal canal narrowing. There is no significant foraminal narrowing. L2-3: There is a circumferential disc bulge and small right posterior lateral disc protrusion. There is mild spinal canal narrowing. There is no significant foraminal stenosis. L3-4: There are postsurgical changes at this level. There is no evidence of disc herniation. There is no spinal or foraminal stenosis L4-5: There are postsurgical changes this level. There is no disc herniation. There is no spinal stenosis. There is no ascitic or foraminal narrowing L5-S1: There are postsurgical changes present. There is no disc herniation. There is no spinal or foraminal stenosis. The conus medullaris and cauda equina appear normal. There are Tarlov cysts within the sacral canal. Postcontrast images reveal no pathologically enhancing lesions. IMPRESSION: 1. Postsurgical changes of discectomies and posterior pedicle screw spinal fusion at the L3-S1 levels 2. Disc bulge and small right posterior lateral disc protrusion at the L2-3 level. There is degenerative discogenic endplate edema at this level 3. Mild circumferential disc bulge at the L1-2 level. 4. Perineural/Tarlov cysts within the sacral canal Electronically signed by: Mark Haines M.D. 08/24/2017 10:39 AM Dictated Date/Time: 08/24/2017 10:31 AM
== END | disposition home or self-care (01) ==
LOC: C.MRIBC 09:03
PROVIDERS: ATTEND Physician Assistant Medical
DX: Z98.1 Arthrodesis status (principal); M51.26 Other intervertebral disc displacement, lumbar region; R22.2 Localized swelling, mass and lump, trunk